=== PATIENT | male | born 1950 | race Caucasian/White ===

== ENCOUNTER → 2019-12-03 14:23 | Outpatient (BNVA) | payer MEDICARE, OTHER, SELFPAY | PROVIDERS: Family Provider Family Medicine; PCP Nurse Practitioner Family; Visit Provider Nurse Practitioner Family | DX: J10.1 Influenza due to other identified influenza virus with other respiratory manifestations (principal); H66.92 Otitis media, unspecified, left ear; R05 Cough; R50.9 Fever, unspecified | CPT/HCPCS: 87804 ==

== ENCOUNTER → 2021-02-23 08:44 | Outpatient (BNVA) | payer MEDICARE, OTHER, SELFPAY | PROVIDERS: Family Provider Family Medicine; PCP Nurse Practitioner Family; Visit Provider Nurse Practitioner Family | DX: I10 Essential (primary) hypertension (principal) | CPT/HCPCS: 80053; 80061; 83735; 84443; 85025 ==

== ENCOUNTER 2021-03-29 15:20 | Outpatient (CLI) | payer MEDICARE, OTHER, SELFPAY ==
--- NOTE | 2021-03-29 16:00 | MR_ITS ---
WS: [id number] MRI RIGHT HIP NONCONTRAST TECHNIQUE: Axial T1, axial T2 fat sat, coronal T1, coronal STIR, sagittal T2 fat sat, sagittal T1, an d sagittal T2 fat sat, of both hips. CLINICAL INFORMATION: R93.89 - Abnormal findings on diagnostic imaging of other... COMPARISON: None. FINDINGS: Both hips are normal in appearance. No acute fractures. No evidence of avascular necrosis. Moderate d egenerative arthritis both hips with joint space narrowing. Degenerative cystic change in the right f emoral neck. Normal bone marrow signal in the sacrum and lower lumbar spine. Disc bulging partially v isualized L5-S1 with a small central protrusion. Fat-containing left inguinal hernia. MR/MR hip RT wo con* [id number] IMPRESSION: 1. Moderate degenerative arthritis both hips with joint space narrowing. No ac [place] fractures. 2. Normal bone marrow signal in the lower lumbar spine and sacrum. 3. Small central protrusion L5-S1. Lumbar spine could be further evaluated wit h MRI. 4. Incidental fat-containing left inguinal hernia.
== END 2021-03-29 15:21 | disposition home or self-care (01) ==
LOC: RADSHAW 15:25
PROVIDERS: Family Provider Family Medicine; PCP Nurse Practitioner Family; Visit Provider Nurse Practitioner Family
DX: R93.89 Abnormal findings on diagnostic imaging of other specified body structures (principal); M16.0 Bilateral primary osteoarthritis of hip; M51.27 Other intervertebral disc displacement, lumbosacral region; K40.90 Unilateral inguinal hernia, without obstruction or gangrene, not specified as recurrent
CPT/HCPCS: 73721

== ENCOUNTER → 2022-08-23 09:44 | Outpatient (BNVA) | payer MEDICARE, OTHER, SELFPAY | PROVIDERS: Family Provider Family Medicine; PCP Nurse Practitioner Family; Visit Provider Nurse Practitioner Family | DX: I10 Essential (primary) hypertension (principal) | CPT/HCPCS: 80053; 80061; 84443; 85025 ==

== ENCOUNTER → 2023-02-28 14:43 | Outpatient (BNVA) | payer MEDICARE, OTHER, SELFPAY | PROVIDERS: Family Provider Family Medicine; PCP Family Medicine Adult Medicine; Visit Provider Nurse Practitioner Family | DX: I10 Essential (primary) hypertension (principal); M10.9 Gout, unspecified; Z87.39 Personal history of other diseases of the musculoskeletal system and connective tissue; Z68.26 Body mass index [BMI] 26.0-26.9, adult | CPT/HCPCS: 80053; 80061; 84443; 84550 ==

== ENCOUNTER → 2023-03-09 13:32 | Outpatient (BNVA) | payer MEDICARE, OTHER, SELFPAY | PROVIDERS: Family Provider Family Medicine; PCP Family Medicine Adult Medicine; Visit Provider Nurse Practitioner Family | DX: M15.9 Polyosteoarthritis, unspecified (principal) | CPT/HCPCS: 73562 ==

== ENCOUNTER 2023-08-04 06:00 | Outpatient (RCR) | payer MEDICARE, OTHER, SELFPAY | END 2023-08-15 23:59 | disposition home or self-care (01) | LOC: GPT 06:00 | PROVIDERS: Visit Provider Nurse Practitioner Family | DX: M54.41 Lumbago with sciatica, right side (principal) | CPT/HCPCS: 97110; 97112; 97140; 97161; 97164 ==

== ENCOUNTER 2023-08-16 06:00 | Outpatient (RCR) | payer MEDICARE, OTHER, SELFPAY | END 2023-08-25 23:59 | disposition home or self-care (01) | LOC: GPT 06:00 | PROVIDERS: PCP Nurse Practitioner Family; Visit Provider Nurse Practitioner Family | DX: M54.41 Lumbago with sciatica, right side (principal) | CPT/HCPCS: 97110; 97112; 97140; 97530 ==

== ENCOUNTER → 2023-11-02 15:58 | Outpatient (BNVA) | payer MEDICARE, OTHER, SELFPAY | PROVIDERS: PCP Family Medicine Adult Medicine; Visit Provider Nurse Practitioner Family | DX: S69.92XA Unspecified injury of left wrist, hand and finger(s), initial encounter (principal); W23.0XXA Caught, crushed, jammed, or pinched between moving objects, initial encounter | CPT/HCPCS: 73130 ==

== ENCOUNTER → 2024-01-04 09:06 | Outpatient (BNVA) | payer MEDICARE, OTHER, SELFPAY | PROVIDERS: PCP Family Medicine Adult Medicine; Visit Provider Family Medicine Adult Medicine | DX: I10 Essential (primary) hypertension (principal); M53.3 Sacrococcygeal disorders, not elsewhere classified; G89.29 Other chronic pain; M54.16 Radiculopathy, lumbar region; M15.9 Polyosteoarthritis, unspecified | CPT/HCPCS: 80053 ==

== ENCOUNTER 2024-06-13 12:15 | Outpatient (RCR) | payer MEDICARE, OTHER, SELFPAY | END 2024-06-15 18:00 | disposition home or self-care (01) | LOC: GPT 12:15 | PROVIDERS: Visit Provider Nurse Practitioner Family | DX: M54.59 Other low back pain (principal); M54.16 Radiculopathy, lumbar region | CPT/HCPCS: 97110; 97140; 97162 ==

== ENCOUNTER 2024-06-16 06:00 | Outpatient (RCR) | payer MEDICARE, OTHER, SELFPAY | END 2024-07-15 23:59 | disposition home or self-care (01) | LOC: GPT 06:00 | PROVIDERS: Visit Provider Nurse Practitioner Family | DX: M54.59 Other low back pain (principal) | CPT/HCPCS: 97110; 97112; 97140 ==

== ENCOUNTER → 2024-09-05 08:47 | Outpatient (BNVA) | payer MEDICARE, OTHER, SELFPAY | PROVIDERS: PCP Family Medicine; Visit Provider Specialist | DX: M54.16 Radiculopathy, lumbar region (principal); G89.29 Other chronic pain | CPT/HCPCS: 99204 ==

== ENCOUNTER → 2024-10-22 10:14 | Outpatient (BNVA) | payer MEDICARE, OTHER, SELFPAY | PROVIDERS: PCP Family Medicine; Visit Provider Orthopaedic Surgery | DX: M54.50 Low back pain, unspecified (principal); G89.29 Other chronic pain; M48.062 Spinal stenosis, lumbar region with neurogenic claudication | CPT/HCPCS: 72110; 99204 ==

== ENCOUNTER → 2024-10-29 09:53 | Outpatient (BNVA) | payer MEDICARE, OTHER, SELFPAY | PROVIDERS: PCP Family Medicine; Referring Provider Specialist; Visit Provider Specialist | DX: M48.062 Spinal stenosis, lumbar region with neurogenic claudication (principal); M54.31 Sciatica, right side; M54.32 Sciatica, left side; M54.50 Low back pain, unspecified; G89.29 Other chronic pain | CPT/HCPCS: 95910 ==

== ENCOUNTER → 2024-12-31 10:01 | Outpatient (BNVA) | payer MEDICARE, OTHER, SELFPAY | PROVIDERS: PCP Family Medicine; Visit Provider Nurse Practitioner Family | DX: I10 Essential (primary) hypertension (principal) | CPT/HCPCS: 80053; 80061; 85025 ==

== ENCOUNTER 2025-02-13 05:00 | Outpatient (RCR) | payer MEDICARE, OTHER, SELFPAY | END 2025-03-11 12:34 | disposition home or self-care (01) | LOC: GPT 05:00 | PROVIDERS: Visit Provider Orthopaedic Surgery | DX: M54.9 Dorsalgia, unspecified (principal); G89.29 Other chronic pain | CPT/HCPCS: 97110; 97140; 97161 ==

== ENCOUNTER 2025-02-13 18:46 | Emergency (ER) | payer MEDICARE, OTHER, SELFPAY ==
[2025-02-13 18:57] VITALS: BP 129/77; PULSE 69; RESP 16; TEMP 36.7; O2SAT 97; BMI 27.3
--- NOTE | 2025-02-13 19:42 | CTR_ITS ---
PROCEDURE INFORMATION: Exam: CT Lumbar Spine Without Contrast Exam date and time: 02/13/2025 7:57 PM Age: 74 years old Clinical indication: Pain; Lumbago with sciatica; Bilateral; Additional info: Decreased sensation l4 distribution, h/o anterolithesis TECHNIQUE: Imaging protocol: Computed tomography of the lumbar spine without contrast. Radiation optimization: All CT scans at this facility use at least one of these dose optimization techniques: automated exposure control; mA and/or kV adjustment per patient size (includes targeted exams where dose is matched to clinical indication); or iterative reconstruction. COMPARISON: MR lumbar spine wo con* [id number] 08/27/2024 7:46 AM RADIATION DOSE METRICS: Total DLP (mGy-cm): 726.4 FINDINGS: Bones/joints: No compression deformity or traumatic subluxation. Vertebral body heights are relatively well-maintained. Grade 1 anterolisthesis L3 over L4. Multilevel degenerative changes with disc space narrowing, most pronounced at L2-L3 level. Stomach and bowel: Colonic diverticulosis. Soft tissues: Unremarkable. CT/CT lumbar spine wo con* [id number] IMPRESSION: No acute compression deformity or traumatic subluxation within lumbar spine.
--- NOTE | 2025-02-13 19:44 | ED_ITS ---
HPI - Back Pain/Injury General: Chief Complaint: Back Pain/Injury Stated Complaint: Pain in back legs and toes feel numb Time Seen by Provider: 02/13/25 19:27 Source: patient Mode of arrival: wheelchair Limitations: no limitations History of Present Illness: 74yo male presents with family for evalu ation of numbness in the left lower leg and toe. Patient reports starting at 1600 this afternoon, he began having pain and numbness. Patient reports at home he was not able to move his toes at all. States that he has numbness to the great toe and up the inside of the left lower leg. Patient reports he did take 2 hydrocodone, which has helped his pain some. Patient states that he previously had x-rays and was seen by Dr. Brown and they were going to watch the area. Patient denies recent fall, trauma, known injury, any other concerns at this time. Associated symptoms: Deny chills, fever(s) or vomiting Related Data Previous Rx's ?Medication ?Instructions ?Recorded carvedilol 6.25 mg tablet See Rx Instructions .Route 0 12/23/24 .COMPLEX #180 tabs losartan 100 See Rx Instructions .Route 0 12/23/24 mg-hydrochlorothiazide 25 mg tablet .COMPLEX #90 tabs hydrocodone 5 mg-acetaminophen 325 1 tab PO BID PRN pa in 30 days #60 01/27/25 mg tablet tabs amlodipine 10 mg tablet 10 mg PO DAILY #90 tabs 01/15 01/07 methylprednisolone 4 mg tablets in See Rx Instructions PO .COMPLEX 02/13/25 a dose pack #21 ea tizanidine 4 mg tablet 4 mg PO Q8H PRN muscle spast icity 02/13/25 #20 tabs Allergies Allergy/AdvReac Type Severity Reaction Status Date / Time Sulfa (Sulfonamide Allergy ADR-Irritab Verified 02/13/25 19:04 Antibiotics) le Review of Systems Const: Denies: fever(s), chills or body aches Card: Denies: chest pain Resp: Denies: dyspnea GI: Denies: vomiting : Denies: difficulty urinating or urinary incontinence Neuro: Reports: numbness in extremities (right great toe) PFS ED PFSH: Medical History Bilateral sciatica CAD S/P percutaneous coronary angioplasty LAD stent & NSTEMI Chronic left sacroiliac joint pain Lumbar back pain with radiculopathy affecting left lower extremity Osteoarthritis involving multiple joints on both sides of body Lt knee, Rt hip, back DDD BPH loc w urin obs/LUTS Urinary frequency Essential hypertension NSTEMI (non-ST elevated myocardial infarction) Surgical History History of heart artery stent Social History Smoking and tobacco/nicotine status: never used tobacco/nicotine Alcohol intake: never Physical Exam Const: COMMON NORMALS: no acute distress, patient oriented x3, healthy appearing and alert GENERAL APPEARANCE: cooperative OTHER: Patient is lying reclined on the stretcher no acute distress. He is noted to be able to make position changes with no difficulty. He is able to flex and extend both legs with no difficulty and unassisted. He is able to turn on the side wit h no difficulty. History is provided by patient. Family is at bedside HENMT: COMMON NORMALS: normocephalic and atraumatic HEAD & SCALP: normocephalic and atraumatic Neck/C-Spine: COMMON NORMALS: full ROM Chest: CHEST: Yes Symmetrical chest wall rise Resp: COMMON NORMALS: normal respiratory effort EFFORT & INSPECTION: Yes able to speak in complete sentences Back/Pelvis: COMMON NORMALS: no thoracic nor lumbar tenderness and thoraco- lumbar ROM normal PELVIS: Yes sciatic notch tenderness on the left Neuro: COMMON NORMALS: patient oriented x3 and moves all extremities SENSORIUM/ORIENTATION: Yes alert SENSORY EXAM: Yes extremities (decreased sensation along L4 distribution below knee) Course Reevaluation(s): Reevaluation #1: Discussed CT findings with patient and family. Patient reports that he just got his pain medications, so he is still having pain. Will reevaluate for pain control. Time: 20:50 Vital Signs: Vital signs: Vital Signs Temperature 98.1 F 02/13/25 18:57 Pulse Rate 69 02/13/25 18:57 Respiratory Rate 16 02/13/25 18:57 Blood Pressure 129/77 02/13/25 18:57 Pulse Oximetry 97 02/13/25 18:57 Oxygen Delivery Me thod Room Air 02/13/25 18:57 MDM - Back Pain/Injury Medical Decision Making 74yo male presents with family for evaluation of numbness in the left lower leg and toe. Patient reports starting at 1600 this afternoon, he began having pain and numbness. Patient reports at home he was not able to move his toes at all. States that he has numbness to the great toe and up the inside of the left lower leg. Patient reports he did take 2 hydrocodone, which has helped his pain some. Patient states that he previously had x-rays and was seen by Dr. Brown and they were going to watch the area. Patient denies recent fall, trauma, known injury, any other concerns at this time. Patient is nontoxic in appearance. Vital signs are stable. Patient declines pain medication at this time. No cauda equina symptoms noted on exam. Will proceed with CT scan lumbar spine as patient did have x-ray lumbar spine in October 2024 revealing anterolisthesis of L3 on L4 with no instability and moderate L2 disc space narrowing. On exam, patient is able to move the toes of bilateral feet. He does have decreased sensation of the right great toe as well along the L4 nerve root distribution of the lower aspect of the leg. CT lumbar spine reveals grade 1 anterolisthesis L3 over L4 as well as multilevel degenerative changes with disc space narrowing, most pronounced at L2-L3 level. Discussed these findings with patient and family. Patient reported mild improvement after ketorolac and Depo-Medrol. Patient did receive tizanidine while in the emergency department as well. Prescription for tizanidine and Medrol Dosepak sent to patient's pharmacy. Recommend follow-up with Dr. Brown as soon as possible for recheck. Return precautions provided. Patient and family state understanding and have no further questions or concerns at this time. Differential Diagnosis Likely lumbar radiculopathy, sciatica and strain of lumbar region Labs Radiology Impressions Lumbar Spine CT 02/13/25 19:42 IMPRESSION: No acute compression deformity or traumatic subluxation within lumbar spine. All radiology interpretation(s) finalized by discharge Discharge Plan Discharge Patient Disposition: Home Clinical Impression: Lumbar radiculopathy Sciatica Qualifiers: Laterality: left Qualified Code(s): M54.32 - Sciatica, left side Condition: Stable Prescriptions: New tizanidine 4 mg tablet 4 mg PO Q8H PRN (Reason: muscle spasticity) Qty: 20 0RF methylprednisolone 4 mg tablets,dose pack See Rx Instructions .ROUTE .COMPLEX Qty: 21 0RF Rx Instructions: orally per package directions No Action amlodipine 10 mg tablet 10 mg PO DAILY Qty: 90 3RF losartan-hydrochlorothiazide 100-25 mg tablet See Rx Instructions .ROUTE .COMPLEX Qty: 90 3RF Dose Instruction: TAKE ONE TABLET BY MOUTH ONE TIME DAILY Rx Instructions: TAKE ONE TABLET BY MOUTH ONE TIME DAILY carvedilol 6.25 mg tablet See Rx Instructions .ROUTE .COMPLEX Qty: 180 0RF Dose Instruction: Take 1 tablet by mouth twice daily with food Rx Instructions: Take 1 tablet by mouth twice daily with food hydrocodone-acetaminophen 5-325 mg tablet 1 tab PO BID PRN (Reason: pain) 30 Days Qty: 60 0RF Discharge Orders: Discharge ED (Routine); Ordered 02/13/25 Ordered By: Cyril Alfred Referrals: Nikolai Everett MD [Primary Care Provider, [facility]] Discharge Diet: Usual diet Discharge Activity: Increase activity as tolerated Patient Instructions: Opioid Safety, Pain Management Activity Restrictions/Additional Instructions: The CT scan of your low back reveals multilevel degenerative changes. This is likely inflammation of the sciatic nerve Tizanidine and prednisone Dosepak have been sent to the pharmacy to help with pain. Please do not drive or operate heavy machinery while taking tizanidine Follow-up with Dr. Brown as soon as possible for recheck of your back Return to the emergency department if any rapid worsening symptoms, groin numbness/tingling, incontinence, and as needed Print Language: Portuguese Coding Level of Care Code ED [employer] Shift Superintendent for Tiana Grullon
[2025-02-13] MEDS: ketorolac 30 mg/mL INJ IM (20:39)
[2025-02-13] MEDS: methylPREDNISolone (DEPO) 40 mg/mL INJ 1 mL IM (20:39)
[2025-02-13] MEDS: tizanidine 4 mg Tablet PO (21:53)
--- NOTE | 2025-02-14 07:28 | DCPLANNER ---
messaged ortho for er f/u
== END 2025-02-13 22:01 | disposition home or self-care (01) ==
PROVIDERS: Emergency Provider Nurse Practitioner; PCP Family Medicine
DX: M54.16 Radiculopathy, lumbar region (principal); M54.32 Sciatica, left side; I25.10 Atherosclerotic heart disease of native coronary artery without angina pectoris; I10 Essential (primary) hypertension
CPT/HCPCS: 72131; 96372; 99284; J1010; J1885; J9999

== ENCOUNTER 2025-02-14 16:58 | Emergency (ER) | payer MEDICARE, OTHER, SELFPAY ==
[2025-02-14 17:02] VITALS: BP 138/74; PULSE 72; RESP 18; TEMP 36.7; O2SAT 98
--- NOTE | 2025-02-14 17:54 | W.ED.BACK ---
HPI - Back Pain/Injury General: Chief Complaint: Back Pain/Injury Stated Complaint: numbness in left leg Time Seen by Provider: 02/14/25 17:08 History of Present Illness: 74-year-old male presents emergency room complaining of numbness in his left leg and some weakness in his leg. He has not had any frequently incontinence or urinary retention. He was seen last night started on steroids and muscle relaxers had some improvement with that. He has previously had MRI that showed some moderate spinal stenosis Dr. Brown had seen him and had elected to treat conservatively up to this point. He has not been back since October. He ambulates with a cane typically he fell 1 time this morning. Associated symptoms: Deny abdominal pain, chills, dysuria, fever(s) or urinary urgency Related Data Previous Rx's ?Medication ?Instructions ?Recorded carvedilol 6.25 mg tablet See Rx Instructions .Route 12/23/24 .COMPLEX #180 tabs losartan 100 See Rx Instructions .Route 12/23/24 mg-hydrochlorothiazide 25 mg tablet .COMPLEX #90 tabs hydrocodone 5 mg-acetaminophen 325 1 tab PO BID PRN pain 30 days #60 01/27/25 mg tablet tabs amlodipine 10 mg tablet 10 mg PO DAILY #90 tabs 02/05/25 tizanidine 4 mg tablet 4 mg PO Q8H PRN muscle spasticity 02/13/25 #20 tabs hydrocodone 5 mg-acetaminophen 325 1 tab PO Q6H PRN pain #20 tabs 02/14/25 mg tablet prednisone 20 mg tablet 20 mg PO TID #15 tabs 02/14/25 pregabalin 75 mg capsule (Lyrica) 75 mg PO BID #60 caps 02/14/25 Allergies Allergy/AdvReac Type Severity Reaction Status Date / Time Sulfa (Sulfonamide Allergy ADR-Irritab Verified 02/14/25 17:04 Antibiotics) le Review of Systems Const: Denies: fever(s) or chills Card: Denies: chest pain Resp: Denies: dyspnea GI: Denies: abdominal pain : Denies: dysuria, urinary frequency or urinary urgency Musc: Reports: back pain and extremity pain; Denies: neck pain Skin/Breast: Denies: rash PFSH ED PFSH: Medical History Bilateral sciatica CAD S/P percutaneous coronary angioplasty LAD stent & NSTEMI Chronic left sacroiliac joint pain Lumbar back pain with radiculopathy affecting left lower extremity Osteoarthritis involving multiple joints on both sides of body Lt knee, Rt hip, back DDD BPH loc w urin obs/LUTS Urinary frequency Essential hypertension NSTEMI (non-ST elevated myocardial infarction) Surgical History History of heart artery stent Social History Smoking and tobacco/nicotine status: never used tobacco/nicotine Alcohol intake: never Physical Exam Const: GENERAL APPEARANCE: cooperative ORIENTATION/CONSCIOUSNESS: Yes awake, Yes oriented to person, Yes oriented to place and Yes oriented to time HENMT: COMMON NORMALS: normocephalic, atraumatic and hearing grossly normal bilaterally HEAD & SCALP: normocephalic and atraumatic Resp: COMMON NORMALS: normal respiratory effort, No retractions, No use of accessory muscles and clear to auscultation bilaterally AUSCULTATION: clear to auscultation bilaterally Cardio: COMMON NORMALS: regular rate, regular rhythm and No murmurs present (Cardio) RATE: regular rate RHYTHM: regular rhythm GI: COMMON NORMALS: Soft to palpation and No hepatosplenomegaly present AUSCULTATION: Yes normoactive bowel sounds PALPATION: Yes Soft to palpation, No Tenderness to palpation present (GI), No Guarding due to palpation present (GI) and Yes No hepatosplenomegaly present Extremity: COMMON NORMALS: normal to inspection, capillary refill normal, no clubbing, cyanosis or edema, no calf tenderness and no pedal edema OTHER: Mild weakness in dorsiflexion sensation normal deep tendon reflexes at the patellar tendon on the right +2 4+104 on the left Neuro: SENSORIUM/ORIENTATION: Yes oriented to person, Yes oriented to place and Yes oriented to time Skin: COMMON NORMALS: no rashes or lesions noted GENERAL SKIN EXAM: no rashes or lesions noted Course Vital Signs: Vital signs: Vital Signs Temperature 98.0 F 02/14/25 17:02 Pulse Rate 72 02/14/25 19:59 Respiratory Rate 16 02/14/25 18:59 Blood Pressure 127/77 02/14/25 19:59 Pulse Oximetry 97 02/14/25 19:59 Oxygen Delivery Me thod Room Air 02/14/25 18:59 MDM - Back Pain/Injury Medical Decision Making Patient does have a lumbar radiculopathy with meds given he has noticed significant improvement and like to go home. Will discharge patient home give hydrocodone if higher dose prednisone taper started Lyrica 75 twice daily follow-up with Dr. Brown as soon as he is able. CT did not show any significant changes last. No advanced imaging was repeated we did review the CT that was done last night and the previous MRI Medical Records I reviewed the patient's medical records. Labs I reviewed the patient's lab results. No radiology studies performed this visit Discharge Plan Discharge Patient Disposition: Home Clinical Impression: Lumbar back pain with radiculopathy affecting left lower extremity Condition: Stable Prescriptions: New hydrocodone-acetaminophen 5-325 mg tablet 1 tab PO Q6H PRN (Reason: pain) Qty: 20 0RF prednisone 20 mg tablet 20 mg PO TID Qty: 15 0RF Rx Instructions: 1 p.o. 3 times daily x3 days, 1 p.o. twice daily x2 days, 1 p.o. daily x2 days pregabalin [Lyrica] 75 mg capsule 75 mg PO BID Qty: 60 0RF Discontinued methylprednisolone 4 mg tablets,dose pack See Rx Instructions .ROUTE .COMPLEX Qty: 21 0RF Rx Instructions: orally per package directions No Action amlodipine 10 mg tablet 10 mg PO DAILY Qty: 90 3RF losartan-hydrochlorothiazide 100-25 mg tablet See Rx Instructions .ROUTE .COMPLEX Qty: 90 3RF Dose Instruction: TAKE ONE TABLET BY MOUTH ONE TIME DAILY Rx Instructions: TAKE ONE TABLET BY MOUTH ONE TIME DAILY carvedilol 6.25 mg tablet See Rx Instructions .ROUTE .COMPLEX Qty: 180 0RF Dose Instruction: Take 1 tablet by mouth twice daily with food Rx Instructions: Take 1 tablet by mouth twice daily with food hydrocodone-acetaminophen 5-325 mg tablet 1 tab PO BID PRN (Reason: pain) 30 Days Qty: 60 0RF tizanidine 4 mg tablet 4 mg PO Q8H PRN (Reason: muscle spasticity) Qty: 20 0RF Discharge Orders: Discharge ED (Routine); Ordered 02/14/25 Ordered By: Jacky Pappas Referrals: Nikolai Everett MD [Primary Care Provider, [facility]] Discharge Diet: Usual diet Discharge Activity: Increase activity as tolerated Patient Instructions: Opioid Safety, Pain Management Activity Restrictions/Additional Instructions: Thank you for choosing [facility] for your healthcare needs today. It is very important that you follow up as instructed or that you return to the Emergency Department should you have concerns or if your condition changes or worsens in any way. You are seen in the emergency room with complaints of back pain improved with medications given recommend he follow-up with Dr. Brown as soon as you are able. Recommend stopping them steroid taper they gave yesterday and instead using the higher dose steroid taper that you were prescribed today begin this tomorrow. You are also given hydrocodone to use as needed and Lyrica to start 1 pill twice a day take this regularly. Print Language: Yakut Coding Level of Care Code ED Contracts Representative for Tiana Grullon
[2025-02-14] MEDS: ondansetron 2 mg/ML SDV 2 mL 4 MG IVP (18:53)
[2025-02-14] MEDS: ketorolac 30 mg/mL INJ IVP (18:53)
[2025-02-14] MEDS: orphenadrine 30 mg/mL Inj 2 mL 60 MG IVP (18:53)
[2025-02-14] MEDS: dexamethasone 10 mg/mL INJ IVP (18:53)
[2025-02-14] MEDS: morphine 4 mg/mL SDV 1 mL IVP (18:53)
[2025-02-14 18:59] VITALS: BP 142/77; PULSE 69; RESP 16; O2SAT 96
--- NOTE | 2025-02-14 19:11 | PC.NURSE ---
Assumed care from Tatiana GARZA at this time.
[2025-02-14 19:59] VITALS: BP 127/77; PULSE 72; O2SAT 97
== END 2025-02-14 20:00 | disposition home or self-care (01) ==
PROVIDERS: Emergency Provider Family Medicine; PCP Family Medicine
DX: M54.16 Radiculopathy, lumbar region (principal); I25.10 Atherosclerotic heart disease of native coronary artery without angina pectoris; I10 Essential (primary) hypertension
CPT/HCPCS: 96374; 96375; 99284; J1100; J1885; J2270; J2360; J2405

== ENCOUNTER → 2025-02-18 14:37 | Outpatient (BNVA) | payer MEDICARE, OTHER, SELFPAY | PROVIDERS: PCP Family Medicine; Visit Provider Orthopaedic Surgery | DX: M48.062 Spinal stenosis, lumbar region with neurogenic claudication (principal) | CPT/HCPCS: 99213 ==

== ENCOUNTER 2025-02-26 13:17 | Outpatient (CLI) | payer MEDICARE, OTHER, SELFPAY ==
--- NOTE | 2025-02-26 13:45 | MR_ITS ---
WS: [id number] MRI LUMBAR SPINE NONCONTRAST TECHNIQUE: Sagittal T1, T2 and STIR imaging. Axial T1 and T2 imaging. CLINICAL INFORMATION: back pain COMPARISON: 2023 FINDINGS: Mild lumbar curve. No acute compression. Slight anterolisthesis L2 on L3 and L3 on L4. L1-L2: Normal. L2-L3: Mild annular bulging. Moderate central canal stenosis with impingement subarticular recess bilaterally. Moderate facet arthropathy. Mild to moderate bilateral foraminal narrowing. L3-L4: Slight anterolisthesis. Severe central canal stenosis due to disc bulging with facet arthropathy and ligamentum flavum hypertrophy. Small LEFT foraminal protrusion with mild LEFT foraminal narrowing. L4-L5: Mild annular bulging with impingement on the RIGHT subarticular recess and traversing RIGHT L5 nerve root. This is progressed compared to previous. Moderate facet arthropathy. Moderate central canal stenosis. Mild RIGHT foraminal narrowing. L5-S1: Mild annular bulging. Spinal canal and foramen are patent. Moderate facet arthropathy. Visualized pelvic bony structures: Normal. Paravertebral soft tissues: Normal. Bilateral parapelvic renal cysts. MR/MR lumbar spine wo con* [id number] IMPRESSION: 1. Moderate central canal stenosis L2-3 and severe central canal stenosis L3-4 appears stable. 2. Moderate central canal stenosis L4-5 appears progressed. 3. LEFT foraminal protrusion L3-4 with mild LEFT foraminal narrowing similar t o previous. 4. Mild to moderate bilateral L2-3 foraminal narrowing with small bilateral fo raminal protrusions. 5. Moderate facet arthropathy worse at L3-L5.
== END 2025-02-26 13:18 | disposition home or self-care (01) ==
LOC: RAD 13:18
PROVIDERS: PCP Nurse Practitioner Family; Visit Provider Orthopaedic Surgery
DX: M48.062 Spinal stenosis, lumbar region with neurogenic claudication (principal); M51.26 Other intervertebral disc displacement, lumbar region; M47.896 Other spondylosis, lumbar region; M43.8X6 Other specified deforming dorsopathies, lumbar region; M24.28 Disorder of ligament, vertebrae; M51.369 Other intervertebral disc degeneration, lumbar region without mention of lumbar back pain or lower extremity pain; M51.379 Other intervertebral disc degeneration, lumbosacral region without mention of lumbar back pain or lower extremity pain; M47.897 Other spondylosis, lumbosacral region; N28.1 Cyst of kidney, acquired
CPT/HCPCS: 72148

== ENCOUNTER → 2025-03-04 14:51 | Outpatient (BNVA) | payer MEDICARE, OTHER, SELFPAY | PROVIDERS: PCP Nurse Practitioner Family; Visit Provider Orthopaedic Surgery | DX: Z09 Encounter for follow-up examination after completed treatment for conditions other than malignant neoplasm (principal); M48.062 Spinal stenosis, lumbar region with neurogenic claudication | CPT/HCPCS: 99214 ==

== ENCOUNTER → 2025-04-17 08:44 | Outpatient (BNVA) | payer MEDICARE, OTHER, SELFPAY | PROVIDERS: PCP Nurse Practitioner Family; Visit Provider Orthopaedic Surgery | DX: M48.062 Spinal stenosis, lumbar region with neurogenic claudication (principal) | CPT/HCPCS: 99214 ==

== ENCOUNTER 2025-05-14 16:06 | Observation (INO) | payer MEDICARE, OTHER, SELFPAY ==
[2025-05-14] VITALS (27 sets, daily range): BP systolic 114–167; BP diastolic 65–91; PULSE 63–81; RESP 12–18; TEMP 36.2–36.7; O2SAT 92–100; BMI 26.4
--- NOTE | 2025-05-14 07:47 | XR_ITS ---
WS: [id number] Lumbar spine, C-arm fluoroscopy views, 05/14/2025 Clinical Data: or pic Comparison: Lumbar spine, 10/22/2024 Findings: Dr. Brown performed a lumbar decompression. XR/XR lumbar spine 1V [id number] Impression: Lumbar decompression.
--- NOTE | 2025-05-14 12:02 | W.PM.OPSUD ---
Surgery/Procedure H&P Update DATE OF PROCEDURE: May 14, 2025 DATE H&P PERFORMED: 04/17/25 H&P UPDATE INFORMATION: I have reviewed H&P completed within last 30 days, I have examined patient prior to procedure and No changes to prior documentation PREOP DIAGNOSIS: Lumbar stenosis with neurogenic claudication PLANNED PROCEDURE: Operation Date: 05/14/25 12:20 Proposed Procedures p Lumbar Spine Decompression(Not Applicable) - Constantino Brown DO
--- NOTE | 2025-05-14 12:02 | ANES.PREANE2 ---
Pre-Anesthetic Assessment Height/Weight: Height 5 ft 8 in Weight 174 lb O2 Del Method Room Air 05/14/25 10:55 Preop Diagnosis: Lumbar stenosis with neurogenic claudication Operation Date: 05/14/25 12:20 Proposed Procedures p Lumbar Spine Decompression(Not Applicable) - Constantino Brown, DO Was Beta Elliot taken within 24 hours: N/A Was Clonidine taken within 24 hours: N/A Last intake: Intake Last Liquid Date 05/13/25 Last Liquid Time 21:00 Last Solid Date 05/13/25 Last Solid Time 21:00 Social No alcohol and No tobacco Exam alert, oriented x 3, clear to auscultation bilaterally and regular rate & rhythm Airway Submandibular: within normal limits Cervical ROM: within normal limits Mallampati: Class III Dentition: full Anesthetic Plan ASA status: 3 Anesthesia: General Other: No prior issues with anesthesia NPO since yesterday evening History of hypertension on amlodipine and losartan?HCTZ GERD, diet controlled Patient currently experiencing claudication symptoms and bilateral sciatica Patient does ambulate with a cane Plan for GETA Medications/Allergies Home Medications ?Medication ?Instructions ?Recorded ?Confirmed ?Last Taken ?Type hydrocodone 7.5 mg-acetaminophen 1 tab PO TID pain 7 days #21 tabs 03/04/25 05/14/25 05/14/25 07:00 Rx 325 mg tablet amlodipine 10 mg tablet 10 mg PO QPM 05/13/25 05/13/25 05/13/25 History losartan 100 1 tab PO DAILY 05/13/25 05/13/25 05/13/25 History mg-hydrochlorothiazide 25 mg tablet Allergies Allergy/AdvReac Type Severity Reaction Status Date / Time No Known Allergies Allergy Verified 05/14/25 10:53 [facility] Anesthesia Medical History Bilateral sciatica CAD S/P percutaneous coronary angioplasty LAD stent & NSTEMI Chronic left sacroiliac joint pain Lumbar back pain with radiculopathy affecting left lower extremity Osteoarthritis involving multiple joints on both sides of body Lt knee, Rt hip, back DDD BPH loc w urin obs/LUTS Urinary frequency Essential hypertension NSTEMI (non-ST elevated myocardial infarction) Surgical History History of heart artery stent Social History Smoking and tobacco/nicotine status: never used tobacco/nicotine Alcohol intake: never
[2025-05-14] MEDS: ceFAZolin 2,000 mg SDV 2000 MG IVP ×2 (12:21→21:26)
[2025-05-14] MEDS: lidocaine-epi 1% 20 mL INJ 10 ML INJECTION (12:53)
--- NOTE | 2025-05-14 13:59 | P.OP_ITS ---
Operative Report Date of procedure: May 14, 2025 Pre-op diagnosis: Lumbar stenosis with neurogenic claudication Post-op diagnosis: same Procedure done: 1. L2/3 laminectomy with partial facetectomy 2. L3/4 laminectomy partial facetectomy 3. L4/5 laminectomy partial facetectomy Surgeon: Constantino Brown DO Estimated blood loss (mL): 15 Procedure: 1. L2/3 laminectomy with partial facetectomy 2. L3/4 laminectomy partial facetectomy 3. L4/5 laminectomy partial facetectomy Patient is brought to the operative suite. After undergoing anesthesia they are placed in the prone position. All areas of impingement are well padded. Patient is then prepped and draped in the normal sterile fashion. A skin incision is made over the L2/3 level. This is confirmed under c-arm guidance. A series of dilators are passed and the tubular retractor is docked on the L2 lamina. A bovie is used to clear the soft tissue off the lamina and the L 2/3 facet joint. A high speed carl is then used to perform the laminectomy and take down the medial aspect of the L 2/3 facet joint. A kerrison rongeure was then used to take down the remaining lamina and smooth the edge of the laminectomy up to the point where the ligamentum flavum attaches. Attention was then brought to the medial aspect of the facet joint. The remaining medial aspect of the superior and inferior aspect of the facet joint were taken down with the kerrison from the pedicle of L2 to L 3. The facet joint had significant hypertrophy. Attention was then brought to the Ligamentum Flavum. The ligament was taken down from the lamina of L2 to L3 and out medially to the remaining facet joint. The ligament was thick. The dura was then exposed. The dura was in good repair. The L2 nerve was then traced with a curette out the L2/3 foramen and found to be adequately decompressed. The L3 nerve was traced with a curette around the L3 pedicle. The lateral recess was opened with a kerrison helping to further decompress the L3 nerve. Wound is then irrigated copiously with saline and surgiflo is used to stop any bleeding. The tubular retractor is removed A skin incision is made over the L3/4 level. This is confirmed under c-arm guidance. A series of dilators are passed and the tubular retractor is docked on the L3 lamina. A bovie is used to clear the soft tissue off the lamina and the L 3/4 facet joint. A high speed carl is then used to perform the laminectomy and take down the medial aspect of the L 3/4 facet joint. A kerrison rongeure was then used to take down the remaining lamina and smooth the edge of the laminectomy up to the point where the ligamentum flavum attaches. Attention was then brought to the medial aspect of the facet joint. The remaining medial aspect of the superior and inferior aspect of the facet joint were taken down with the kerrison from the pedicle of L3 to L 4. The facet hernando nt had significant hypertrophy. Attention was then brought to the Ligamentum Flavum. The ligament was taken down from the lamina of L3 to L4 and out medially to the remaining facet joint. The ligament was thick. The dura was then exposed. The dura was in good repair. The L3 nerve was then traced with a curette out the L3/4 foramen and found to be adequately decompressed. The L4 nerve was traced with a curette around the L4 pedicle. The lateral recess was opened with a kerrison helping to further decompress the L4 nerve. Wound is then irrigated copiously with saline and surgiflo is used to stop any bleeding. The tubular retractor is removed A skin incision is made over the L4/5 level. This is confirmed under c-arm guidance. A series of dilators are passed and the tubular retractor is docked on the L4 lamina. A bovie is used to clear the soft tissue off the lamina and the L 4/5 facet joint. A high speed carl is then used to perform the laminectomy and take down the medial aspect of the L 4/5 facet joint. A kerrison rongeure was then used to take down the remaining lamina and smooth the edge of the laminectomy up to the point where the ligamentum flavum attaches. Attention was then brought to the medial aspect of the facet joint. The remaining medial aspect of the superior and inferior aspect of the facet joint were taken down with the kerrison from the pedicle of L4 to L 5. The facet joint had significant hypertrophy. Attention was then brought to the Ligamentum Flavum. The ligament was taken down from the lamina of L4 to L5 and out medially to the remaining facet joint. The ligament was thick. The dura was then exposed. The dura was in good repair. The L4 nerve was then traced with a curette out the L4/5 foramen and found to be adequately decompressed. The L5 nerve was traced with a curette around the L5 pedicle. The lateral recess was opened with a kerrison helping to further decompress the L5 nerve. Wound is then irrigated copiously with saline and surgiflo is used to stop any bleeding. The tubular retractor is removed and the wound is closed with vicryl and monocryl suture. Steri strips were applied. A sterile dressing is then placed. Patient was then placed in the supine position and transferred to the PACU in stable condition.
--- NOTE | 2025-05-14 14:05 | SUR.PHASEI ---
13:59 RECEIVED PT FROM OR STAFF.AIRWAY PATENT WITH GOOD VENTILATION. NSR ON MONITOR. ROM AND SENSATION IN ALL 4 EXTREMITIES.
[2025-05-14] MEDS: fentaNYL 50 mcg/mL INJ 2mL IVP ×2 (14:17→14:43)
--- NOTE | 2025-05-14 14:30 | SUR.PHASEI ---
14:30 MODERATE RELIEF OF BACK PAIN .TOLERATING ICE CHIPS PO. WARM BLANKETS APPLIED. A+O X 3.
[2025-05-14] MEDS: oxyCODONE-APAP 10-325 mg Tablet PO ×2 (16:38→21:41)
--- NOTE | 2025-05-14 16:55 | ANE.PACU2 ---
Inpatient post-anesthesia follow up: Airway intact: Yes Vital signs: Temperature 98.0 F Pulse Rate 73 Respiratory Rate 18 Blood Pressure 135/81 Pulse Oximetry 99 Oxygen Delivery Me thod Room Air Oxygen Flow Rate Fraction of Inspir ed Oxygen Hydration adequate: Yes Nausea and vomiting: No Pain level: 2 Mental status: Baseline
[2025-05-15] VITALS (10 sets, daily range): BP systolic 125–151; BP diastolic 63–81; PULSE 60–73; RESP 16–18; TEMP 36.5–36.7; O2SAT 93–99
[2025-05-15] MEDS: oxyCODONE-APAP 10-325 mg Tablet PO ×4 (03:00→16:40)
[2025-05-15] MEDS: ceFAZolin 2,000 mg SDV 2000 MG IVP ×2 (04:53→12:11)
--- NOTE | 2025-05-15 09:31 | PC.CHAP ---
Pastoral Care Encounter/Spiritual Assessment Type of Contact [] Declined plastics patternmaker visit [] Patient/Family/Request visit [] Outpatient visit [] Follow-up visit [] Physician referral [] Code/Alert [x] Routine visit [] Staff referral [] Actively dying [] Patient sleeping [] Family support [] [] Out of room [] Palliative care [] [] Receiving care in room [] Pre-surgical visit [] Trauma [] Long length of stay [] ICU visit [] Other: Relational/Emotional Strength [x] Patient feels connected with others/family/visitors/staff [] Distress [] Loneliness/isolation [] Abandonment Spirituality of Patient [x] Person of Cierra [x] Attends Moravian of their [place] [x] Believes in Prayer [x] Reads Bible or Temple materials [] There are Spiritual issues to be addressed Furniture Polisher Interventions [x] Prayer [x] Active listening [x] Non-anxious presence [x] Spiritual/emotional support [] Crisis/trauma care [] Spiritual counseling [] Bereavement support [] Provided bereavement packet [] Provided Bible/devotional materials [] Provided toy/stuffed animal, coloring book to patient or family member [] Provided Communion [] Anointing/[place] [] Salvation [x] Completed spiritual assessment [] Other: Impact on Illness or Injury [] Angry [] Fearful [] Anxious [] Often cries [] Exhaustion [] Unable to work [] Unable to attend sabianism [] Unable to walk/stand [] Unable to read [] Unable to drive [] Unable to eat/drink [] Unable to sleep [] Unable to be with family [] Patient intubated [] Other: Summary Time spent with patient 5 min
--- NOTE | 2025-05-15 15:32 | PC.NURSE ---
Discharge Note Patient discharged to home via private vehicle accompanied by . Discharge instructions reviewed with patient and/or strategic partnership representative. Mobile pharmacy medications and/or prescriptions provided. Belongings/home medications returned.
--- NOTE | 2025-05-15 16:00 | PC.NURSE ---
Patient was told Dr Brown was not here to put in orders for pain medication at discharge and this nurse asked if patient had pain meds left at home from office visit. Patient stated he did and he would be ok with discharging today but wanted the doctor to switch medication to what he was getting here. Left message with charge for tomorrow.
--- NOTE | 2025-05-15 16:49 | PC.NURSE ---
waiting on to come to go over discharge and she is his ride
--- NOTE | 2025-05-16 10:31 | P.DS_ITS ---
Discharge Providers Date of Admission: 05/14/25 16:06 Date of Discharge: 2024 Attending Provider at Admission: Constantino Brown DO Attending Provider at Discharge: Constantino Brown DO Primary Care Provider: Guerda Valdes NP Reason for Visit Reason for Visit: [id number] Discharge Data Studies Completed and Pending Completed Studies During Hospitalization Category Date Time Status XR lumbar spine 1V 96708 Routine Exams 05/14/25 07:47 Completed Pending at discharge Category Date Time Status C-arm Fluoroscopy [id number] Routine Exams 05/14/25 10:44 Taken Radiology Impressions Lumbar Spine X-Ray 05/14/25 07:47 Impression: Lumbar decompression. Vitals Last Vital Signs Temp 98.0 F 05/15/25 15:54 Pulse 73 05/15/25 15:54 Resp 18 05/15/25 16:40 BP 135/81 05/15/25 15:54 Pulse Ox 99 05/15/25 15:54 O2 Del Method Room Air 05/15/25 15:46 Discharge Plan Discharge Patient Disposition: Home Prescriptions: No Action hydrocodone-acetaminophen 7.5-325 mg tablet 1 tab PO TID 7 Days Qty: 21 0RF oxycodone-acetaminophen 10-325 mg tablet 1 tab PO Q4H PRN (Reason: pain) 7 Days Qty: 42 0RF amlodipine 10 mg tablet 10 mg PO QPM losartan-hydrochlorothiazide 100-25 mg tablet 1 tab PO DAILY Rx Instructions: TAKE ONE TABLET BY MOUTH ONE TIME DAILY Discharge Order = DC NOW: Discharge Order (Routine); Ordered 05/15/25 Ordered By: Constantino Brown Referrals: Constantino Brown DO [Physician, Orthopedics] - 05/29/25 2:15 pm Referral Note: Patient Instructions: Acute Wound Care (DC), Lumbar Spinal Stenosis (DC), Laminectomy (DC), Opioid Safety, Post Anesthesia Care, Patient Portal & Aissatou Instructions Activity Restrictions/Additional Instructions: Thank you for [facility] for your care! The following is a list of instructions, from your provider, to follow upon your discharge to ensure you have the optimal recovery from your recent injury orsurgery. Follow-up care is a whit[place] part of your treatment and safety. Be sure to make and go to all appointments, and call your doctor if you are having problems. If you do not already have a follow-up appointment made, call Dr. Brown office in the next 1-3 days to make follow up appointment for 2 weeks at [phone]. It is also a good idea to know your test results and keep a list of the medicines you take. Medications will be prescribed for you at your provider's discretion. These medications are to be used as instructed; if they are taken more often that prescribed they will not be refilled early and in most cases will not be refilled at all. > When a refill is needed,you should contact micah irene 2-3 business days before your prescription runs out. Medications will NOT be refilled by healthcare risk control consultant providers after hours! > Many pain medications contain Tylenol (Acetaminophen). Do not consume more than 4,000 mg of Tylenol per day in total with any combination ofmedications. > Pain medications can cause constipation. Please use an over the counter stool softener as directed, while taking pain medications. Consulty our local pharmacist with questions or recommendations on stool softeners. If constipation persists, contact our office or your primary care provider. > While under our care,you are not to receive pain medications or other controlled substances from any other provider unless our office is notified and approves. Any attempts to do so will result in refusal to prescribe any further pain medications and possible dismissal from our practice. ? Your wound and/or dressing should remain clean and dry for 2 days after surgery. On postoperative day 2 (48 hours after your surgery) the dressing (if present) should be removed and it is okay to shower and get the incision wet. Pad dry afterwards. No further dressing should be required from that point on. Do not put any creams or ointments on theincision > It is normal for there to be a small amount of discharge (bloody or blood tinged) present from a surgical wound for the first 1-3days. > The wound should be examined twice a day for signs of infection. Mild redness or bruising is to be expected but indications that an infection maybe starting would include; An increase in redness, swelling, or discharge, a foul odor present around the incision, and/or a fever greater than 101 ?F ? Showering is permitted, however we ask that you do not take a bath, sit in a whirlpool / Jacuzzi, or go swimming for 1 month. For only the first 2 days after surgery, lt wilt be necessary for you to cover your wound/dressing with plastic and tape to keep it dry. ? Walking is essential for the healing process after surgery. We would like you to slowly advance your walking. This should be done on relative ly flat clear ground (inside or out) or can be done on a treadmill. Remember this goal does not have to happen all at once, slowly increase your distance and duration. This can be broken into more more than one walk per day as tolerated. Patients who walk as directed after surgery rarely require Physical Therapy. In the unlikely event this issue arises your provider will direct hospital staff to make the appropriate arrangements. ? No lifting over 5 pounds {a gallon of milk) or bending/twisting until further notice. Each of these activities places an unnecessary amount of stress onto the body and can impede the delicate healing process. > Instead of bending at the waist, keep your back straight and bend at the knees. > Instead of twisting your torso, keep your back straight and turn your entire body with your feet. ? You may sleep in any position which makes you comfortable. Many patients find comfort sleeping in a reclining chair. It is not abnormal to have difficulty sleeping for the first several weeks following your surgery. We recommend trying Benadry! or Tylenol PM as directed to help with your sleeping difficulties. Both medications are over the counter and available withoutprescription. ? NO SMOKING!!! Smoking dramatically increases the probability of developing postoperative wound infections. ? Common complaints after lumbar and/or thoracic spine surgery include, but are not limited to: numbness and/or tingling in the legs, pain around the incision and surrounding tissues, muscle spasms, or stiffness of the middle to low back. Contact our office if these symptoms persist or if an acute change occurs. ? No driving for the first 3-5days, and not while taking narcotics [] until seen at your follow-up appointment and cleared. There are no restrictions for riding on short trips, however if you take a longer trip, arrangements should be made to make regular stops to get out of the vehicle and stretch . ? Swelling is an unfortunate event that will take place with any surgery and is the primary source of your postoperative discomfort. While walking and regular approved activities helps control inflammation, there are additional steps you can take to minimizeswelling. > Place ice over the surgical site and surrounding tissue for twenty minutes, followed by applying a low/medium heat (heating pad) for an additional twenty minutes every 1-2 hours as needed for painrelief. > You may use of over the counter anti-inflammatory medications (Ibuprofen, Motrin, Aleve, Advil, etc) as directed on the package label. These types of medicines wm significantly reduce the amount of discomfort you experience after surgery from swelling. It should be noted that if you have and allergy to any of these medications, or a history of ulcers or kidney disease you should consult you primary care provider prior to starting these medications. Discharge Attestations Time Spent in Discharge Care*: less than 30 min Quality Metrics Clinical Quality Measures [ No reported AMI, CVA or VTE this stay] Coding Level of Care Code Acute Code for Chg Mitchel
== END 2025-05-15 18:39 | disposition home or self-care (01) ==
LOC: MEDSURG 16:06
PROVIDERS: Admitting Provider Orthopaedic Surgery; PCP Nurse Practitioner Family; Visit Provider Orthopaedic Surgery
PROC: (CPT 63005; principal; 2025-05-14 12:10)
DX: M48.062 Spinal stenosis, lumbar region with neurogenic claudication (principal); I25.10 Atherosclerotic heart disease of native coronary artery without angina pectoris; Z95.5 Presence of coronary angioplasty implant and graft; M47.899 Other spondylosis, site unspecified; I10 Essential (primary) hypertension; I25.2 Old myocardial infarction
CPT/HCPCS: 63047; 63048 ×2; 72020; 76000; 97116; 97161; G0378; J0690; J1100; J1171; J1885; J2405; J2704; J3010; J3490; J7030; J7120; J9999

== ENCOUNTER 2025-05-22 14:27 | Emergency (ER) | payer MEDICARE, OTHER, SELFPAY ==
--- OUTSIDE RECORDS SUMMARY | 2025-05-22 14:32 | XMS_ITS | Patient Health Record ---
Author Organization [facility] Address [address] [place] [address] Care Team Providers Care Environmental Construction Engineer Name Role Phone Guerda Valdes APRN Primary Care Provider Unavail able SOPHIE PAIGE Unavailable [phone] Allergies No Known Allergies Reason For Referral No Information Medications Medication SIG (Take, Route, Frequency, Duration) Notes Start Date End Date Status metroNIDAZOLE 500 MG 1 tablet Orally Twi ce a day; Duration: 7 day(s) Not-Taking Losartan Potassium 100 MG 1 tablet Orall y Once a day Active amLODIPine Besylate 5 MG 1 tablet Orally Once a day Active Problems Problem Type SNOMED Code ICD Code Onset Dates Problem Status W/U Status Risk Notes Problem Diverticular disease of colon (619377599) Diverticulosis of large intestine without perforation or abscess without bleeding (K57.30) Active confirmed Problem Retrograde ejaculation (73075728) Retrograde ejaculation (N53.14) Active confirmed Problem Nocturia (928294782) Nocturia (R35.1) Active confirmed Problem Urgent desire to urinate (88951430) Urgency of urination (R39.15) Active confirmed Problem Mixed hyperlipidemia (116862484) Mixed hyperlipidemia (E78.2) Active confirmed Problem Essential hypertension (41135046) Essential hypertension (I10) Active confirmed Problem Lower urinary tract symptoms due to benign prostatic hypertrophy (27937136271630) Benign prostatic hyperplasia with lower urinary tract symptoms (N40.1) Active confirmed Problem Erectile dysfunction (disorder) (041609377) Erectile dysfunction, unspecified erectile dysfunction type (N52.9) Active confirmed Problem Penile pain (371818547) Penile pain (N48.89) Active confirmed Problem Urge incontinence of urine (88153982) Urge incontinence of urine (N39.41) Active confirmed Problem Acute non-ST segment elevation myocardial infarction (655594440) Non-ST elevated myocardial infarction (I21.4) Active confirmed Problem History of placement of stent for coronary artery disease (situation) (661324323) History of coronary artery stent placement (Z95.5) Active confirmed Problem Atherosclerosis of coronary artery without angina pectoris (826337740614448) Atherosclerosis of [place] coronary artery of [place] heart without angina pectoris (I25.10) Active confirmed Problem Benign prostatic hypertrophy without outflow obstruction (282671029) Benign prostatic hyperplasia, unspecified whether lower urinary tract symptoms present (N40.0) Active confirmed Problem History of nephrolithiasis (005524130) History of nephrolithiasis (Z87.442) Active confirmed Problem Benign prostatic hypertrophy with outflow obstruction (320744714) BPH loc w urin obs/LUTS (N40.1) Active confirmed Plan Of Treatment Pending Test Test Name Order Date UA Without Micro-Auto 20803 01/19/2023 Basic Metabolic Panel [id number] 09/12/2022 CBC w\ Auto Diff 50052 09/12/2022 PSA Diagnostic--46204 02/02/2022 Culture Urine Reflex--[id number] 09/12/2022 Electrocardiogram 12 Lead Tracing-13698 09/12/2022 ELECTRO-UROFLOWMETRY FIRST 07/27/2022 Future Test Test Name Order Date Abdomen [id number] 05/21/2023 Insurance Providers Payer Name Payer Address Payer Phone Subscriber Number Group Number Insured Name Patient Relationship to Insured Coverage Start Date Coverage End Date [place] [address] PARTHA LUISA MARROQUIN [id number] Samuel Dougherty Self - patient is the insured [facility] [address] [place] [phone] [id number] Samuel Dougherty Self - patient is the insured Medical (General) History Medical History History ICD Code Hypertension Arthritis Benign prostatic hypertrophy Surgical History Surgery Date(Month/Year) Appendectomy 1965 Left knee arthroscopy 1997 Cystoscopy, kidney stone removal 1995 Coronary artery stent 2019 PVP 09/2022 Hospitalization History Reason Date(Month/Year) see sx
--- OUTSIDE RECORDS SUMMARY | 2025-05-22 14:33 | XMS_ITS | Patient Health Record ---
Author Organization [facility] Address [address] [place] [address] Care Team Providers Care Rn Quality Name Role Phone Guerda Valdes APRN Primary Care Provider Unavail Dolores Garcia [phone] Allergies No Known Allergies Reason For Referral No Information Medications Medication SIG (Take, Route, Frequency, Duration) Notes Start Date End Date Status metroNIDAZOLE 500 MG Tablet 1 tablet Orally Twice a day; Duration: 7 day(s) Not-Taking amLODIPine Besylate 5 MG Tablet 1 tablet Orally Once a day Active Losartan Potassium 100 MG Tablet 1 tablet Orally Once a day Active Social History Tobacco Use: Social History Observation Description Date Details (start date - stop date) Never Smoker NA - NA Social History Drugs/Alcohol: Social Info Question Answer Notes Alcohol Screen (Audit-C) Did you have a drink containing alcohol in the past year? No Points 0 Interpretation Negative Tobacco Use: Social Info Question Answer Notes xTobacco Use/Smoking Are you a nonsmoker Problems Problem Type SNOMED Code ICD Code Onset Dates Problem Status W/U Status Risk Notes Problem Diverticular disease of colon (714747098) Diverticulosis of large intestine without perforation or abscess without bleeding (K57.30) Active confirmed Problem Retrograde ejaculation (70407182) Retrograde ejaculation (N53.14) Active confirmed Problem Nocturia (594946229) Nocturia (R35.1) Active confirmed Problem Urgent desire to urinate (45815629) Urgency of urination (R39.15) Active confirmed Problem Mixed hyperlipidemia (332807978) Mixed hyperlipidemia (E78.2) Active confirmed Problem Lower urinary tract symptoms due to benign prostatic hypertrophy (12000278256668) Benign prostatic hyperplasia with lower urinary tract symptoms (N40.1) Active confirmed Problem Erectile dysfunction (disorder) (801053904) Erectile dysfunction, unspecified erectile dysfunction type (N52.9) Active confirmed Problem Essential hypertension (86661792) Essential hypertension (I10) Active confirmed Problem Urge incontinence of urine (61574177) Urge incontinence of urine (N39.41) Active confirmed Problem Atherosclerosis of coronary artery without angina pectoris (524507533424506) Atherosclerosis of [place] coronary artery of [place] heart without angina pectoris (I25.10) Active confirmed Problem Penile pain (034462627) Penile pain (N48.89) Active confirmed Problem History of placement of stent for coronary artery disease (situation) (518733494) History of coronary artery stent placement (Z95.5) Active confirmed Problem Benign prostatic hypertrophy without outflow obstruction (077129203) Benign prostatic hyperplasia, unspecified whether lower urinary tract symptoms present (N40.0) Active confirmed Problem Benign prostatic hypertrophy with outflow obstruction (885093575) BPH loc w urin obs/LUTS (N40.1) Active confirmed Problem History of nephrolithiasis (058749624) History of nephrolithiasis (Z87.442) Active confirmed Problem Acute non-ST segment elevation myocardial infarction (408113337) Non-ST elevated myocardial infarction (I21.4) Active confirmed Plan Of Treatment Pending Test Test Name Order Date Basic Metabolic Panel (BMP) 51314 2021 CBC w\ Auto Diff [id number] 09/12/2022 PSA Diagnostic--69508 02/02/2022 Electrocardiogram 12 Lead Tracing-[id number] 09/12/2022 Culture Urine Reflex--[id number] 09/12/2022 Insurance Providers Payer Name Payer Address Payer Phone Subscriber Number Group Number Insured Name Patient Relationship to Insured Coverage Start Date Coverage End Date [place] Medicare [address] [place] [phone] [id number] Samuel Dougherty Self - patient is the insured [place] [employer] [facility] [address] [place] [phone] [id number] Samuel Dougherty Self - patient is the insured Medical (General) History Medical History History ICD Code Hypertension Arthritis Benign prostatic hypertrophy Surgical History Surgery Date(Month/Year) Appendectomy 1966 Left knee arthroscopy 1997 Cystoscopy, kidney stone removal 1995 PVP 09/2022 Coronary artery stent 2019 Hospitalization History Reason Date(Month/Year) see sx
[2025-05-22 14:57] VITALS: BP 177/88; PULSE 72; RESP 16; TEMP 36.9; O2SAT 98; BMI 26.4
--- NOTE | 2025-05-22 16:40 | USR_ITS ---
PROCEDURE INFORMATION: Exam: US Duplex Left Lower Extremity Veins, Limited Exam date and time: 05/22/2025 4:58 PM Age: 74 years old Clinical indication: Pain; Leg, lower; Left; Additional info: Post op leg/calf pain and knot reported TECHNIQUE: Imaging protocol: Real-time duplex ultrasound of the left extremity with 2-D simon scale, color Doppler flow and spectral waveform analysis including responses to compression and other maneuvers (when performed) with image documentation. Limited exam focused on the left lower extremity veins. COMPARISON: CR XR knee LT 3V* [id number] 03/09/2023 1:47 PM FINDINGS: Left deep veins: Unremarkable. The common femoral, femoral, proximal profunda femoral and popliteal veins are patent without thrombus. Normal Doppler waveforms. Normal compressibility and/or augmentation response. Superficial veins: Greater saphenous vein at the saphenofemoral junction is patent without thrombus. Soft tissues: Mildly enlarged groin node, doubtful clinical significance. Unremarkable. US/[place] [id number] IMPRESSION: No evidence of deep vein thrombosis.
[2025-05-22 16:56] VITALS: BP 180/90; PULSE 67; O2SAT 98
[2025-05-22 17:00] VITALS: BP 181/108; PULSE 71; O2SAT 98
[2025-05-22] MEDS: oxyCODONE-APAP 10-325 mg Tablet 2 TAB PO (17:52)
[2025-05-22 18:00] VITALS: BP 202/103; PULSE 64; O2SAT 98
[2025-05-22 18:00] LABS: Glucose Urine UA 3+ (Normal); Nitrate Urine Negative (Negative); Specific Gravity, Urine 1.026 (1.005-1.030)
[2025-05-22 18:05] LABS: Add Urine Microscopic? YES
--- NOTE | 2025-05-22 18:09 | W.ED.EXTPRO ---
HPI - Extremity Problem General: Chief complaint: Extremity Problem,Nontraumatic Stated complaint: L leg and foot pain, swelling, redness, hard lump Time Seen by Provider: 05/22/25 16:23 Source: patient Mode of arrival: ambulatory Limitations: no limitations History of Present Illness: Patient is a 74-year-old male who presents to the emergency department complaining of left lower extremity pain status post back surgery a few weeks ago. He had a laminectomy facetectomy L2-L5, states has overall been well since but has had paresthesias into his left foot and a knot to his left calf that he is concerned about. Has been ambulatory, though with pain. States that he ran out of his oxycodone as well, currently also on pregabalin and steroids. No bowel or bladder incontinence, saddle anesthesia, or any other symptoms of cauda equina. He is not on a blood thinner, denies history of blood clots and denies any trauma. MD Complaint: extremity pain and extremity swelling Onset (ago): day(s) Pain Consistency: constant Location: left and lower extremity Exacerbating factors: range of motion Associated symptoms: Deny chest pain, fever(s) or rash Context: recent surgery/procedure Related Data Home Medications ?Medication ?Instructions ?Recorded ?Confirmed amlodipine 10 mg tablet 10 mg PO QPM 05/13/25 05/13/25 losartan 100 1 tab PO DAILY 05/13/25 05/13/25 mg-hydrochlorothiazide 25 mg tablet Previous Rx's ?Medication ?Instructions ?Recorded hydrocodone 7.5 mg-acetaminophen 1 tab PO TID pain 7 days #21 tabs 03/04/25 325 mg tablet pregabalin 100 mg capsule (Lyrica) 100 mg PO BID #60 caps 05/16/25 prednisone 20 mg tablet 20 mg PO DAILY 7 days #15 tabs 05/19/25 oxycodone-acetaminophen 10 mg-325 1 tab PO Q4H PRN pain 7 days #42 05/22/25 mg tablet tabs Allergies Allergy/AdvReac Type Severity Reaction Status Date / Time No Known Allergies Allergy Verified 05/22/25 14:59 Review of Systems General: Reports: 10 or more systems reviewed and unremarkable except in HPI and below Const: Denies: fever(s) or chills Card: Denies: chest pain Resp: Denies: dyspnea or productive cough GI: Denies: abdominal pain, nausea, vomiting or diarrhea : Denies: flank pain Musc: Reports: extremity pain (Left lower extremity) and extremity swelling (Left lower extremity); Denies: neck pain, back pain, joint pain, joint swelling, joint redness, joint warmth, limited range of motion or muscle weakness Skin/Breast: Denies: rash Neuro: Denies: headache(s), numbness in extremities or weakness in extremities PFSH ED PFSH: Medical History Bilateral sciatica CAD S/P percutaneous coronary angioplasty LAD stent & NSTEMI Chronic left sacroiliac joint pain Lumbar back pain with radiculopathy affecting left lower extremity Osteoarthritis involving multiple joints on both sides of body Lt knee, Rt hip, back DDD BPH loc w urin obs/LUTS Urinary frequency Essential hypertension NSTEMI (non-ST elevated myocardial infarction) Surgical History History of heart artery stent Social History Smoking and tobacco/nicotine status: never used tobacco/nicotine Alcohol intake: never Physical Exam Const: COMMON NORMALS: no acute distress, patient oriented x3, no limitations, healthy appearing, alert and well nourished HENMT: COMMON NORMALS: normocephalic and atraumatic HEAD & SCALP: normocephalic and atraumatic Neck/C-Spine: COMMON NORMALS: full ROM, supple and no meningeal signs Resp: COMMON NORMALS: normal respiratory effort, No use of accessory muscles and clear to auscultation bilaterally AUSCULTATION: clear to auscultation bilaterally Cardio: COMMON NORMALS: regular rate and regular rhythm RATE: regular rate RHYTHM: regular rhythm Back/Pelvis: OTHER: Bandage to low back, no drainage. No midline tenderness. Negative straight leg raise testing. Extremity: COMMON NORMALS: normal to inspection, full ROM, capillary refill normal, no joint enlargement and no clubbing, cyanosis or edema NARRATIVE EXTREMITY EXAM: Negative Homans' sign on the left. No palpable cord. Tender to palpation to the left lateral calf muscle. No obvious swelling or redness. Distal pulses intact. Neuro: COMMON NORMALS: patient oriented x3, moves all extremities, no focal motor deficits and no sensory deficits noted SENSORIUM/ORIENTATION: Yes alert MENINGEAL SIGNS: Yes no meningeal signs Skin: COMMON NORMALS: no rashes or lesions noted GENERAL SKIN EXAM: no rashes or lesions noted Course Vital Signs: Vital signs: Vital Signs Temperature 98.4 F 05/22/25 14:57 Pulse Rate 67 05/22/25 16:56 Respiratory Rate 16 05/22/25 14:57 Blood Pressure 180/90 05/22/25 16:56 Pulse Oximetry 98 05/22/25 16:56 Oxygen Delivery Me thod Room Air 05/22/25 16:56 MDM - Extremity (Nontraumatic) Medical Decision Making Patient presenting with left lower extremity pain and swelling over the past few days, recent back surgery. Leg was not swollen on exam, was tender to the left lateral portion with negative Homans' sign. No trauma reported, no history of blood clots. Ultrasound was negative for blood clot here, I suspect paresthesias/lumbar radiculopathy status post surgery and he is already on pregabalin and steroids. He is given a dose of oxycodone here, and he was concern for urinary tract infection so urinalysis was ran here negative. Discharged home at this time, he has follow-up next week. Lab Data Laboratory Results Urine Color Yellow (Yellow) 05/22/25 17:44 Urine Appearance Clear (CLEAR) 05/22/25 17:44 Urine pH 6.0 (5-7) 05/22/25 17:44 Ur Specific [place] 1.026 (1.005-1.030) 05/22/25 17:44 Urine Protein Negative (Negative) 05/22/25 17:44 Urine Glucose (UA) 3+ (Normal) H 05/22/25 17:44 Urine Ketones Negative (Negative) 05/22/25 17:44 Urine Blood Negative (Negative) 05/22/25 17:44 Urine Nitrate Negative (Negative) 05/22/25 17:44 Urine Bilirubin Negative (Negative) 05/22/25 17:44 Urine Urobilinogen 1.0 mg/dL (Negative) 05/22/25 17:44 Ur Leukocyte Esterase Negative (Negative) 05/22/25 17:44 Urine RBC 0-2 /hpf (0-2) 05/22/25 17:44 Urine WBC 0-5 /hpf (0-5) 05/22/25 17:44 Ur Squamous Epith Cells 0-5 /hpf (0-5) 05/22/25 17:44 Amorphous Sediment Not Reportable 05/22/25 17:44 Urine Bacteria None seen /hpf (NONE) 05/22/25 17:44 Hyaline Casts 0-4 /lpf H 05/22/25 17:44 XR interpretation done by ED provider, pending radiology final review ED provider radiology interpretation(s): Ultrasound DVT unremarkable at bedside. Discharge Plan Discharge Patient Disposition: Home Clinical Impression: Post-op pain Condition: Stable Prescriptions: No Action hydrocodone-acetaminophen 7.5-325 mg tablet 1 tab PO TID 7 Days Qty: 21 0RF pregabalin [Lyrica] 100 mg capsule 100 mg PO BID Qty: 60 2RF prednisone 20 mg tablet 20 mg PO DAILY 7 Days Qty: 15 0RF Rx Instructions: 60 mg x3 days, 40 mg x2 days, 20 mg x2 days. oxycodone-acetaminophen 10-325 mg tablet 1 tab PO Q4H PRN (Reason: pain) 7 Days Qty: 42 0RF amlodipine 10 mg tablet 10 mg PO QPM losartan-hydrochlorothiazide 100-25 mg tablet 1 tab PO DAILY Rx Instructions: TAKE ONE TABLET BY MOUTH ONE TIME DAILY Discharge Orders: Discharge ED (Routine); Ordered 05/22/25 Ordered By: Vinh Fernandez Referrals: Guerda Valdes NP [Primary Care Provider, [facility]] Patient Instructions: Opioid Safety, Pain Management, Patient Portal & Aissatou Instructions Activity Restrictions/Additional Instructions: Post-laminectomy Discharge Instructions Diagnosis and Hospital Course: --- Medications and Pain Management: - Continue pregabalin and steroids as previously prescribed. - Oxycodone?acetaminophen 10?325 mg: Use the minimum necessary for severe pain not controlled by other means. Limit use to the expected duration of severe pain (typically a few days post-discharge); most patients discontinue opioids within 7?14 days after lumbar decompression. - Taper opioids as pain improves. The [place] [employer] Society and [place] [employer] for Enhanced Recovery recommend reducing opioid dose by 20?25% every 1?2 days if used for more than 1?2 weeks, and discontinuing as soon as function recovers and pain subsides. - Avoid combining opioids with alcohol or other sedatives due to risk of respiratory depression. - Continue multimodal analgesia: Maintain non-opioid adjuncts (acetaminophen, gabapentinoids, NSAIDs if not contraindicated) to minimize opioid requirements. - Unused opioids: Dispose of any unused tablets per pharmacy or local guidelines to prevent diversion. --- Activity and Rehabilitation: - Early mobilization is encouraged as tolerated; there is strong evidence that early ambulation supports functional recovery and reduces complications. - No strict activity restrictions are necessary unless otherwise specified by the neurosurgeon. Gradually increase activity as tolerated, avoiding heavy lifting or strenuous activity until cleared. - Physical therapy may be considered if functional deficits persist or for ongoing radiculopathy. --- Wound Care: - Keep the incision clean and dry. - Monitor for signs of infection: redness, swelling, drainage, or fever. --- Return Precautions: Seek immediate medical attention for: - New or worsening leg weakness, numbness, or loss of bowel/bladder control (possible cauda equina syndrome). - Signs of wound infection (redness, swelling, purulent drainage, fever). - Severe, unremitting pain not controlled by prescribed medications. - Shortness of breath, chest pain, or swelling in the legs (possible DVT/PE). --- Follow-Up: - Continue follow-up with neurosurgery as scheduled. - Contact the neurosurgical office for any questions or concerns regarding recovery, medication side effects, or complications. --- Additional Treatment Options Discussed: - Non-opioid analgesics (acetaminophen, NSAIDs if not contraindicated). - Physical therapy and individualized exercise programs for ongoing radiculopathy. - Consideration of interventional pain management (e.g., epidural steroid injections) if symptoms persist. - Multimodal pain management strategies to minimize opioid exposure. --- Patient Education: - Education on the expected course of recovery, pain management plan, and safe opioid use is essential for optimal outcomes. - Most patients experience steady improvement in pain and function over the first 2?4 weeks post-laminectomy. - Clear instructions and a point of contact for postoperative concerns improve adherence and satisfaction. --- Print Language: Georgian Coding Level of Care Code ED Manager Filter for Tiana Grullon
[2025-05-22 18:55] VITALS: BP 204/96; PULSE 68; O2SAT 99
[2025-05-22 19:41] VITALS: BP 174/85; PULSE 70; O2SAT 98
== END 2025-05-22 19:42 | disposition home or self-care (01) ==
PROVIDERS: Emergency Provider Physician Assistant; PCP Nurse Practitioner Family
DX: G89.18 Other acute postprocedural pain (principal); I25.10 Atherosclerotic heart disease of native coronary artery without angina pectoris; I10 Essential (primary) hypertension
CPT/HCPCS: 81001; 93971; 99284; J9999

== ENCOUNTER → 2025-05-29 14:21 | Outpatient (BNVA) | payer MEDICARE, OTHER, SELFPAY | PROVIDERS: PCP Nurse Practitioner Family; Visit Provider Orthopaedic Surgery | DX: Z98.890 Other specified postprocedural states (principal) | CPT/HCPCS: 99024 ==

== ENCOUNTER → 2025-06-10 14:18 | Outpatient (BNVA) | payer MEDICARE, OTHER, SELFPAY | PROVIDERS: PCP Nurse Practitioner Family; Visit Provider Orthopaedic Surgery | DX: Z98.890 Other specified postprocedural states (principal) | CPT/HCPCS: 99024 ==

== ENCOUNTER → 2025-06-26 08:58 | Outpatient (BNVA) | payer MEDICARE, OTHER, SELFPAY | PROVIDERS: PCP Nurse Practitioner Family; Visit Provider Orthopaedic Surgery | DX: Z98.890 Other specified postprocedural states (principal) | CPT/HCPCS: 99024 ==

== ENCOUNTER 2025-07-07 14:53 | Outpatient (CLI) | payer MEDICARE, OTHER, SELFPAY ==
--- NOTE | 2025-07-07 16:00 | MR_ITS ---
WS: [id number] MRI LUMBAR SPINE NONCONTRAST HISTORY: Z98.890 - Other specified postprocedural states, 7 weeks postop. Pain LEFT leg. COMPARISON: 02/26/2025 TECHNIQUE: Sagittal and axial multisequence imaging is submitted. Increasing thoracic kyphosis. Anterior wedging of T2 is stable. L3 anterolisthesis by 4 mm. Degenerative disc disease with marrow edema at L2-3. Benign hemangioma in the posterior T12 vertebral body. Disc bases are mildly desiccated, greatest at L2-3. Conus terminates normally at L1. L1-L2: Mild facet arthritis. No stenosis. L2-L3: New LEFT laminectomy defect. Partial facetectomy on the LEFT. Annular disc bulging with osteophytic ridging. Encroaching on the central canal. Moderate bilateral facet joint arthritis. Slight improvement in the central canal stenosis from the laminectomy defect. Continued mild to moderate subart icular recess and moderate bilateral foraminal stenosis. L3-L4: LEFT laminectomy defect with partial LEFT facetectomy. Annular disc bulging with osteophytic ridging. Mild improvement in the central stenosis. Disc osteophyte disease resulting moderate subarticular recess and foraminal stenosis. Greater stenosis on the LEFT. L4-L5: Diffuse annular disc bulging, osteophytic ridging. LEFT hemilaminectomy defect with partial facetectomy. Clumping of the nerve roots in the thecal sac. Mild central stenosis. Moderate subarticular recess and mild foraminal stenosis. L5-S1: Mild disc bulging with a small central disc protrusion. Mild bilateral facet arthritis. Minimal foraminal narrowing. Appropriate postoperative changes are noted in the paraspinal soft tissues along the surgical site. Bilateral numerous parapelvic cysts within each kidney. MR/MR lumbar spine wo con* [id number] IMPRESSION: 1. Since the prior MRI of 02/26/2025 patient is undergone LEFT hemilaminectomy defects with facetectomies at L2-3, L3-4 and L4-5. Appropriate postoperative ch anges. No abscess or fluid collection. 2. Multilevel facet joint arthropathy from L2-3 through L5-S1. 3. Mildly improved central stenosis at L2-3, L3-4 and L4-5 due to the laminect theron defects. 4. Continued mild to moderate subarticular recess and moderate foraminal steno sis at L2-3. 5. Moderate subarticular recess and foraminal stenosis at L3-4, greater forami nal stenosis on the LEFT. No progression. 6. Mild clumping of the nerve roots in the thecal sac at L4-5. Moderate subart icular recess stenosis. Mild foraminal and central stenosis persists.
== END 2025-07-07 14:54 | disposition home or self-care (01) ==
LOC: RAD 14:55
PROVIDERS: PCP Nurse Practitioner Family; Visit Provider Orthopaedic Surgery
DX: Z98.890 Other specified postprocedural states (principal); M48.062 Spinal stenosis, lumbar region with neurogenic claudication; M54.16 Radiculopathy, lumbar region; M54.31 Sciatica, right side; M54.32 Sciatica, left side
CPT/HCPCS: 72148

== ENCOUNTER → 2025-07-08 12:40 | Outpatient (BNVA) | payer MEDICARE, OTHER, SELFPAY | PROVIDERS: PCP Nurse Practitioner Family; Visit Provider Orthopaedic Surgery | DX: Z98.890 Other specified postprocedural states (principal); Z09 Encounter for follow-up examination after completed treatment for conditions other than malignant neoplasm | CPT/HCPCS: 99024 ==

== ENCOUNTER → 2025-07-22 07:49 | Outpatient (BNVA) | payer MEDICARE, OTHER, SELFPAY | PROVIDERS: PCP Nurse Practitioner Family; Referring Provider Orthopaedic Surgery; Visit Provider Specialist | DX: M54.31 Sciatica, right side (principal); M54.32 Sciatica, left side; M54.50 Low back pain, unspecified; G89.29 Other chronic pain; M79.18 Myalgia, other site; M53.3 Sacrococcygeal disorders, not elsewhere classified; Z98.890 Other specified postprocedural states; M79.605 Pain in left leg; M79.672 Pain in left foot | CPT/HCPCS: 95909 ==

== ENCOUNTER → 2025-07-29 12:51 | Outpatient (BNVA) | payer MEDICARE, OTHER, SELFPAY | PROVIDERS: PCP Nurse Practitioner Family; Visit Provider Orthopaedic Surgery | DX: Z98.890 Other specified postprocedural states (principal) | CPT/HCPCS: 99024 ==

== ENCOUNTER → 2025-08-06 09:29 | Outpatient (BNVA) | payer MEDICARE, OTHER, SELFPAY | PROVIDERS: PCP Nurse Practitioner Family; Visit Provider Podiatrist Foot & Ankle Surgery | DX: M79.672 Pain in left foot (principal); G57.32 Lesion of lateral popliteal nerve, left lower limb | CPT/HCPCS: 73630; 99204 ==

== ENCOUNTER 2025-08-15 09:54 | Day surgery (SDC) | payer MEDICARE, OTHER, SELFPAY ==
[2025-08-15] VITALS (13 sets, daily range): BP systolic 118–155; BP diastolic 73–103; PULSE 56–95; RESP 12–23; TEMP 36.1–36.8; O2SAT 92–99; BMI 26.1
--- NOTE | 2025-08-15 10:20 | ANES.PREANE2 ---
Pre-Anesthetic Assessment Height/Weight: Height 1.73 m Weight 78.018 kg Temp Pulse Resp BP Pulse Ox O2 Del Method 97.3 F L 63 16 134/93 99 Room Air 08/15/25 10:00 08/15/25 10:00 08/15/25 10:00 08/15/25 10:00 08/15/25 10:00 08/15/25 10:00 Preop Diagnosis: Left common peroneal nerve entrapment Operation Date: 08/15/25 11:25 Proposed Procedures p Peroneal Nerve Decompression(Left) - Vinh Richards DPM Familial anesthetic complications: none Was Beta Elliot taken within 24 hours: N/A Was Clonidine taken within 24 hours: N/A Last intake: Intake Last Liquid Date 08/14/25 Last Liquid Time 20: Last Solid Date 08/14/25 Last Solid Time 20:00 Social No alcohol and No tobacco Exam alert, oriented x 3, clear to auscultation bilaterally and regular rate & rhythm Airway Submandibular: within normal limits Cervical ROM: within normal limits Mallampati: Class II Dentition: full History/ROS No significant history except as noted and No significant complaints Pulmonary Exertional Dyspnea CV/HEM Coronary Artery Disease and Hypertension None reported Hepatic None reported GI Gastroesophageal Reflux Disease Metabolic None reported Musc/skel Lower Back Pain Chronic back and left leg pain Neuropsych Neuropathy (left leg) Anesthetic Plan ASA status: 3 Anesthesia: General Risk of > 500 ml blood loss (7ml/kg in children): No Medications/Allergies Home Medications ?Medication ?Instructions ?Recorded ?Confirmed ?Last Taken ?Type amlodipine 10 mg tablet 10 mg PO QPM 05/13/25 08/14/25 08/14/25 20:30 History losartan 100 1 tab PO DAILY 05/13/25 08/14/25 08/14/25 20:30 History mg-hydrochlorothiazide 25 mg tablet hydrocodone 10 mg-acetaminophen 1 tab PO Q6H PRN pain 30 days #120 07/29/25 08/14/25 08/14/25 20:30 Rx 325 mg tablet tabs Allergies Allergy/AdvReac Type Severity Reaction Status Date / Time No Known Allergies Allergy Verified 08/15/25 10:04 Current Medications Generic Name Dose Route Start Last Admin Trade Name Freq PRN Reason Stop Dose Admin Sodium Chloride 1,000 mls @ 30 mls/hr 08/15/25 10:00 08/15/25 10:15 Sodium Chloride 0.9% IV 08/16/25 09:59 30 mls/hr .Q24H JO Administration PFSH Anesthesia Medical History (Updated 08/09/25 @ 16:19 by Vinh Richards DPM) Bilateral sciatica CAD S/P percutaneous coronary angioplasty LAD stent & NSTEMI Chronic left sacroiliac joint pain Lumbar back pain with radiculopathy affecting left lower extremity Osteoarthritis involving multiple joints on both sides of body Lt knee, Rt hip, back DDD BPH loc w urin obs/LUTS Urinary frequency Essential hypertension NSTEMI (non-ST elevated myocardial infarction) Surgical History History of heart artery stent Social History Smoking and tobacco/nicotine status: never used tobacco/nicotine Alcohol intake: never
--- NOTE | 2025-08-15 11:23 | W.PM.OPSUD ---
Surgery/Procedure H&P Update DATE OF PROCEDURE: August 15, 2025 DATE H&P PERFORMED: 08/06/25 H&P UPDATE INFORMATION: I have reviewed H&P completed within last 30 days, I have examined patient prior to procedure, No changes to prior documentation, H&P is in [facility] EMR on date indicated and Risks and benefits of the procedure reviewed PREOP DIAGNOSIS: Left common peroneal nerve entrapment PLANNED PROCEDURE: Operation Date: 08/15/25 11:25 Proposed Procedures p Peroneal Nerve Decompression(Left) - Vinh Richards DPM
[2025-08-15] MEDS: ceFAZolin 2,000 mg SDV 2000 MG IVP (11:34)
[2025-08-15] MEDS: BUPivacaine 0.5% INJ 30 mL INJECTION (12:15)
--- NOTE | 2025-08-15 12:20 | W.PM.BPON ---
Date of procedure: 08/15/25 Surgeon name: Dr. Vinh Richards DPM Co-Surgeon(s) name(s): Dr. Carlos Clancy DPM Procedure(s) performed: Left common peroneal nerve decompression Description of findings: Compression of left common peroneal nerve Estimated blood loss: 2cc Tourniquet time: 27 minutes Specimen(s) removed: none Post-operative diagnosis: left common peroneal nerve entrapment
--- NOTE | 2025-08-15 12:23 | PM.OP ---
Operative Report Date of procedure: August 15, 2025 Surgeon: Vinh Richards DPM Procedure: Date of procedure: 08/15/2025 Pre-op diagnosis: Left common peroneal nerve entrapment Post-op diagnosis: Same Post-op findings: Left common peroneal nerve entrapment Procedure done: Left common peroneal nerve decompression CPT 33295 Implants: None Specimens removed: None Surgeon: Dr. Vinh Richards DPM Co-surgeon: Dr. Carlos Clancy, D.P.MAmy Estimated blood loss: 5 cc Tourniquet time: 27 minutes Complications: None Patient is a 74-year-old male that has a history of left common peroneal nerve compression with symptoms of dropfoot. The patient has had the aforementioned chief complaint for some time. Conservative treatment measures have been attempted and the patient has opted for surgical intervention at this time. A lengthy discussion regarding the procedure, including risks and complications has been had with the patient and is noted in the recent clinic note. Written and verbal consent have been obtained. All patient questions have been answered to the patient?s satisfaction. No written or verbal guarantees have been given or implied. The patient has been NPO since midnight. The history has been reviewed and the history and physical is current. The signed consent was confirmed and placed in the patient chart. Patient imaging has been reviewed and is consistent with the diagnosis. Under mild sedation, the patient was brought into the operating room and placed on the table in the supine position. IV antibiotics were given by the anesthesia team as preoperative surgical prophylaxis. General sedation was then performed by the anesthesiateam. A pneumatic tourniquet was then placed about the left thigh. The operative extremity was then prepped and draped in the usual fashion. The extremity was then elevated and exsanguinated before the tourniquet was inflated to 325 mmHg. After inflation, the following procedure was then performed. Attention was directed to the left lateral leg at the level of the proximal fibula. A 7 cm incision was made with a #15 blade overlying the area of, peroneal tendon at the fibular neck. Dissection was carried down through subcutaneous the superficial fascia. Care was taken to preserve adjacent neurovascular structures. The common peroneal nerve was identified and dissected. There was noted to be small amount of nerve entrapment at the most distal portion of the nerve. #15 blade was used to release fascia circumferentially around, peroneal nerve. Hemostasis was achieved electrocautery. Site was then irrigated with copious amounts of sterile saline before attention was directed to closure. Deep tissue was closed with 3-0 Vicryl, subcuticular closure with 4-0 Vicryl and skin closure with 4-0 Monocryl and skin glue. Incision was then anesthetized with 0.5% Marcaine plain. Incision was dressed with Adaptic, 4 x 4 gauze, Medipore tape. The patient tolerated the procedure and anesthesia well and without complication. The patient was transported from the operating room to the recovery room with vital signs stable and vascular status intact to all digits of the left foot. The patient was given both written and verbal instructions to remain weight-bear as tolerated to the operative extremity, to keep dressings/splint clean, dry and intact and to take pain medication as directed. The patient will follow-up in the outpatient setting at their scheduled appointment. The patient was discharged with my personal number and was instructed to call if any questions or issues should arise. They were discharged home once anesthesia criteria was met.
[2025-08-15] MEDS: fentaNYL 50 mcg/mL INJ 2mL IVP (12:47)
[2025-08-15] MEDS: HYDROcodone-acetaminophen 10-325 mg Tablet 1 TAB PO (13:27)
--- NOTE | 2025-08-15 14:00 | ANE.PACU2 ---
Inpatient post-anesthesia follow up: Airway intact: Yes Vital signs: Temperature 97.0 F Pulse Rate 63 Respiratory Rate 16 Blood Pressure 145/77 Pulse Oximetry 94 Oxygen Delivery Me thod Room Air Oxygen Flow Rate Fraction of Inspir ed Oxygen Hydration adequate: Yes Nausea and vomiting: No Pain level: 1 Mental status: Baseline
== END 2025-08-15 13:57 | disposition home or self-care (01) ==
PROVIDERS: PCP Nurse Practitioner Family; Visit Provider Podiatrist Foot & Ankle Surgery
PROC: (CPT 64708; principal; 2025-08-15 11:15)
DX: G57.32 Lesion of lateral popliteal nerve, left lower limb (principal); I25.10 Atherosclerotic heart disease of native coronary artery without angina pectoris; I10 Essential (primary) hypertension; K21.9 Gastro-esophageal reflux disease without esophagitis; G62.9 Polyneuropathy, unspecified; Z79.891 Long term (current) use of opiate analgesic; Z95.5 Presence of coronary angioplasty implant and graft; I25.2 Old myocardial infarction
CPT/HCPCS: 64708; J0690; J1100; J2405; J2704; J3010; J3490; J7030; J9999

== ENCOUNTER → 2025-08-28 09:13 | Outpatient (BNVA) | payer MEDICARE, OTHER, SELFPAY | PROVIDERS: PCP Nurse Practitioner Family; Visit Provider Podiatrist Foot & Ankle Surgery | DX: M79.2 Neuralgia and neuritis, unspecified (principal) | CPT/HCPCS: 99024 ==

== ENCOUNTER → 2025-09-17 12:22 | Outpatient (BNVA) | payer MEDICARE, OTHER, SELFPAY | PROVIDERS: PCP Nurse Practitioner Family; Visit Provider Podiatrist Foot & Ankle Surgery | DX: M79.2 Neuralgia and neuritis, unspecified (principal) | CPT/HCPCS: 99024 ==

== ENCOUNTER → 2025-10-06 12:59 | Outpatient (BNVA) | payer MEDICARE, OTHER, SELFPAY | PROVIDERS: PCP Nurse Practitioner Family; Visit Provider Podiatrist Foot & Ankle Surgery | DX: M79.2 Neuralgia and neuritis, unspecified (principal) | CPT/HCPCS: 99214 ==